=== PATIENT | male | born 1975 | race Caucasian/White ===

== ENCOUNTER 2023-11-24 20:27 | Emergency (ER) | payer SELFPAY ==
[~2023-11-24] VITALS: Ht 177.8 cm; Wt 90.7 kg
[2023-11-24 20:37] VITALS: BP 139/82; PULSE 94; RESP 18; TEMP 98; O2SAT 98
[2023-11-24 21:12] VITALS: BP 139/82; PULSE 94; RESP 18; TEMP 98; O2SAT 98
== END 2023-11-24 21:11 ==
LOC: MED 20:27
DX: Z02.89 Encounter for other administrative examinations (principal); V49.88XA Car occupant (driver) (passenger) injured in other specified transport accidents, initial encounter; Y93.89 Activity, other specified; Y92.89 Other specified places as the place of occurrence of the external cause; Y99.8 Other external cause status
CPT/HCPCS: 99283